=== PATIENT | female | born 1970 | race Caucasian/White ===

== ENCOUNTER → 2016-09-11 | Outpatient (CLI) | payer OTHER ==
[~2016-09-11] MED LIST: AZOR 10-40 MG1 EACH PO; COLACE 100MG C100 MG PO; CYMBALTA60 MG PO; DESYREL 50 MG T50 MG PO; DOXYCYCLINE HY100 M2 PO; FLEXERIL 10 MG10 MG PO; HYDROCHLOROTHIA25 MG PO; K-DUR TAB 20 M20 MEQ PO; KLONOPIN TAB 00.5 MG PO; LOPRESSOR 50 MG50 MG PO; NORCO 10-325 T1 EACH PO; PROTONIX40 MG PO; VISTARIL25 MG PO; WELLBUTRIN SR150 M1 PO; ZOCOR20 MG PO
[2016-09-11 16:50] LABS: HEMOGLOBIN 12.5 gm/dl (12.3-15.3); RED BLOOD COUNT 4.69 M/UL (4.00-5.10)
[2016-09-11 17:08] LABS: BUN/CREATININE RATIO 18 (0-10)
== END ==
LOC: LAB 16:22
PROVIDERS: Nurse Practitioner
DX: M06.9 Rheumatoid arthritis, unspecified (principal); M25.50 Pain in unspecified joint; R53.83 Other fatigue; E55.9 Vitamin D deficiency, unspecified; E53.8 Deficiency of other specified B group vitamins
CPT/HCPCS: 36415; 80053; 80061; 82607; 84436; 84443; 84480; 85025; 86039; 86140; 86431

== ENCOUNTER → 2017-01-07 | Outpatient (CLI) | payer OTHER ==
[2017-01-07 15:51] LABS: HEMOGLOBIN 12.2 gm/dl (12.3-15.3); RED BLOOD COUNT 4.65 M/UL (4.00-5.10); WHITE BLOOD COUNT 6.8 K/UL (4.5-11.0)
[2017-01-07 16:25] LABS: BUN/CREATININE RATIO 29 (0-10)
== END ==
LOC: LAB 14:27
PROVIDERS: Nurse Practitioner
DX: D64.9 Anemia, unspecified (principal); K85.90 Acute pancreatitis without necrosis or infection, unspecified; K76.0 Fatty (change of) liver, not elsewhere classified
CPT/HCPCS: 36415; 80053; 82150; 83690; 85027

== ENCOUNTER 2020-06-02 21:09 | Emergency (ER) | payer MEDICARE, OTHER ==
[~2020-06-02 21:09] MED LIST changes: +CARAFATE1 GM PO; +CREON DR 36,001 EACH PO; +EX-LAX15 MG PO; +FLONASE 0.05% N16 GM; +HYDROCHLOROTHIA50 MG PO; +HYGROTON TAB 2525 MG PO; +LASIX20 MG PO; +NORCO 5-325 TA1 EACH PO; +NORVASC10 MG PO; +PREDNISONE10 MG PO; +SYSTANE 0.3-0.415 ML EYEBOTH; +ZOFRAN ODT 4 MG4 MG SL; +ZOFRAN4 MG PO
[2020-06-02 21:50] LABS: HEMOGLOBIN 13.3 gm/dl (12.3-15.3); RED BLOOD COUNT 5.05 M/UL (4.00-5.10); WHITE BLOOD COUNT 8.5 K/UL (4.5-11.0)
[2020-06-02 22:12] LABS: BUN/CREATININE RATIO 9 (0-10)
[2020-06-03] MEDS ORDERED: DOXYCYCLINE MO100 MG PO (00:10)
[2020-06-03] MEDS ORDERED: VENTOLIN HFA 66.7 GM INH (00:10)
[2020-06-04] MEDS ORDERED: IBUPROFEN800 MG PO (21:55)
[2020-06-04] MEDS ORDERED: FLOVENT 110.088 GM/I INH (21:55)
[2020-06-04] MEDS ORDERED: ZOFRAN 4 MG TAB4 MG PO (21:55)
[2020-06-04] MEDS ORDERED: PROAIR DIGIHAL90 MCG INH (21:55)
[2020-06-04] MEDS ORDERED: NASONEX17 GM (21:55)
== END 2020-06-03 00:42 | disposition home or self-care (01) ==
LOC: ER1 21:09
PROVIDERS: Physician Assistant
DX: U07.1 COVID-19 (principal); J12.82 Pneumonia due to coronavirus disease 2019; I10 Essential (primary) hypertension; E11.9 Type 2 diabetes mellitus without complications; Z88.0 Allergy status to penicillin; Z88.1 Allergy status to other antibiotic agents
CPT/HCPCS: 0240U; 36415; 71045; 80053; 85025; 96374; 99283; J1100

== ENCOUNTER 2020-06-04 19:06 | Emergency (ER) | payer MEDICARE, OTHER ==
[~2020-06-04 19:06] MED LIST changes: +DOXYCYCLINE MO100 MG PO; +VENTOLIN HFA 66.7 GM INH
[2020-06-04 19:58] LABS: HEMOGLOBIN 12.3 gm/dl (12.3-15.3); RED BLOOD COUNT 4.75 M/UL (4.00-5.10); WHITE BLOOD COUNT 8.7 K/UL (4.5-11.0)
[2020-06-04 20:07] LABS: BUN/CREATININE RATIO 10 (0-10)
[2020-06-04] MEDS ORDERED: PROAIR DIGIHAL90 MCG INH (21:55)
[2020-06-04] MEDS ORDERED: FLOVENT 110.088 GM/I INH (21:55)
[2020-06-04] MEDS ORDERED: IBUPROFEN800 MG PO (21:55)
[2020-06-04] MEDS ORDERED: ZOFRAN 4 MG TAB4 MG PO (21:55)
[2020-06-04] MEDS ORDERED: NASONEX17 GM (21:55)
== END 2020-06-04 22:07 | disposition home or self-care (01) ==
LOC: ER1 19:06
PROVIDERS: Emergency Medicine
DX: U07.1 COVID-19 (principal); E11.9 Type 2 diabetes mellitus without complications; I10 Essential (primary) hypertension
CPT/HCPCS: 36415; 71045; 80053; 81001; 84484; 85025; 93005; 99285

== ENCOUNTER 2020-06-11 15:52 | Inpatient (IN) | payer MEDICARE, OTHER ==
[~2020-06-11] VITALS: Ht 165.1 cm; Wt 108.9 kg
[~2020-06-11 15:52] MED LIST changes: +FLOVENT 110.088 GM/I INH; +IBUPROFEN800 MG PO; +NASONEX17 GM; +PROAIR DIGIHAL90 MCG INH; +ZOFRAN 4 MG TAB4 MG PO
[2020-06-11 18:32] LABS: RED BLOOD COUNT 5.03 M/UL (4.00-5.10); WHITE BLOOD COUNT 11.9 K/UL (4.5-11.0)
[2020-06-11 18:55] LABS: BUN/CREATININE RATIO 20 (0-10)
[2020-06-11] MEDS ORDERED: GLUCOPHAGE500 MG PO (22:20)
[2020-06-11] MEDS ORDERED: ALDACTONE 25MG25 MG PO (22:23)
[2020-06-12 04:50] LABS: HEMOGLOBIN 11.9 gm/dl (12.3-15.3); RED BLOOD COUNT 4.58 M/UL (4.00-5.10); WHITE BLOOD COUNT 12.2 K/UL (4.5-11.0)
[2020-06-12 05:11] LABS: BUN/CREATININE RATIO 21 (0-10)
[2020-06-13 03:46] LABS: BUN/CREATININE RATIO 25 (0-10)
--- NOTE | 2020-06-13 11:07 | NUR ---
INFORMED DR. MARRERO PATIENT INCREASE HEART RATE 140'S EPISODE FOR FEW SECONDS AND BACK TO 89. SHE ACKNOWLEDGED
[2020-06-14 04:23] LABS: HEMOGLOBIN 10.4 gm/dl (12.3-15.3)
[2020-06-14 04:26] LABS: RED BLOOD COUNT 4.08 M/UL (4.00-5.10)
[2020-06-14 04:57] LABS: BUN/CREATININE RATIO 34 (0-10)
[2020-06-15 02:53] LABS: BUN/CREATININE RATIO 33 (0-10)
[2020-06-16 06:59] LABS: BUN/CREATININE RATIO 29 (0-10)
[2020-06-16] MEDS ORDERED: DECADRON6 MG PO (12:34)
[2020-06-17 00:10] LABS: ADENOVIRUS F 40/41 Not Detected (Not Detected); ASTROVIRUS Not Detected (Not Detected); C DIFFICILE TOXIN A/B Not Detected (Not Detected); CAMPYLOBACTER Not Detected (Not Detected); CRYPTOSPORIDIUM Not Detected (Not Detected); CYCLOSPORA CAYETANENSIS Not Detected (Not Detected); ENTAMOEBA HISTOLYTICA Not Detected (Not Detected); ENTEROAGGREGATIVE E COLI Not Detected (Not Detected); ENTEROPATHOGENIC E COLI Not Detected (Not Detected); ENTEROTOXIGENIC E COLI Not Detected (Not Detected); GIARDIA LAMBLIA Not Detected (Not Detected); NOROVIRUS GI/GII Not Detected (Not Detected); PLESIOMONAS SHIGELLOIDES Not Detected (Not Detected); ROTAVIRUS A Not Detected (Not Detected); SALMONELLA Not Detected (Not Detected); SAPOVIRUS Not Detected (Not Detected); SHIGA-TOXIN-PRODUCING E COLI Not Detected (Not Detected); SHIGELLA/ENTEROINVASIVE E COLI Not Detected (Not Detected); VIBRIO Not Detected (Not Detected); VIBRIO CHOLERAE Not Detected (Not Detected); YERSINIA ENTEROCOLITICA Not Detected (Not Detected)
== END 2020-06-16 19:02 | disposition home or self-care (01) | DRG 177 ==
LOC: ER1 15:52 → CDU 21:12 → MED SURG 4 06-12 20:10
PROVIDERS: Emergency Medicine; Internal Medicine; ADMIT Internal Medicine
PROC: 8E0ZXY6 Isolation (ICD-10-PCS; principal; 2020-06-11)
PROC: XW13325 Transfusion of Convalescent Plasma (Nonautologous) into Peripheral Vein, Percutaneous Approach, New Technology Group 5 (ICD-10-PCS; 2020-06-11)
PROC: XW033E5 Introduction of Remdesivir Anti-infective into Peripheral Vein, Percutaneous Approach, New Technology Group 5 (ICD-10-PCS; 2020-06-12)
DX: U07.1 COVID-19 (principal); K85.80 Other acute pancreatitis without necrosis or infection; J12.82 Pneumonia due to coronavirus disease 2019; M06.9 Rheumatoid arthritis, unspecified; E66.01 Morbid (severe) obesity due to excess calories; I10 Essential (primary) hypertension; F32.9 Major depressive disorder, single episode, unspecified; G89.4 Chronic pain syndrome; K76.0 Fatty (change of) liver, not elsewhere classified; Z79.899 Other long term (current) drug therapy; E11.9 Type 2 diabetes mellitus without complications; Z90.49 Acquired absence of other specified parts of digestive tract; Z68.39 Body mass index [BMI] 39.0-39.9, adult
CPT/HCPCS: 36415; 36430; 36600; 71045; 80048; 80053; 80061; 82550; 82553; 82803; 83690; 83874; 84484; 85025; 85027; 85610; 86900; 86901; 86927; 87507; 93005; 94640; 94664; 94760; 96361; 96374; 96375; 99285; G0378; J1100; J2270; J2405; J7030; J7050; Q0177; Q9967; U0002

== ENCOUNTER → 2020-08-20 | Outpatient (CLI) | payer MEDICARE, OTHER ==
[~2020-08-20] MED LIST changes: +ALDACTONE 25MG25 MG PO; +DECADRON6 MG PO; +GLUCOPHAGE500 MG PO
[2020-08-20 17:00] LABS: HEMOGLOBIN 12.9 gm/dl (12.3-15.3); RED BLOOD COUNT 5.12 M/UL (4.00-5.10); WHITE BLOOD COUNT 8.6 K/UL (4.5-11.0)
[2020-08-20 17:32] LABS: BUN/CREATININE RATIO 16 (0-10)
[2020-08-22 07:11] LABS: THYROXINE (T4) 8.1 ug/dL (4.5-12.0); VITAMIN D, 25-HYDROXY 24.1 ng/mL (30.0-100.0)
[2020-08-22 10:14] LABS: CREATININE, URINE 134.3 mg/dL (Not Estab.)
== END ==
LOC: LAB 14:16
PROVIDERS: Nurse Practitioner
DX: E11.9 Type 2 diabetes mellitus without complications (principal); R53.83 Other fatigue; E78.5 Hyperlipidemia, unspecified; I10 Essential (primary) hypertension; E55.9 Vitamin D deficiency, unspecified; R19.7 Diarrhea, unspecified
CPT/HCPCS: 36415; 80053; 80061; 82043; 82570; 83036; 84436; 84443; 84480; 85025

== ENCOUNTER → 2020-12-05 | Outpatient (CLI) | payer MEDICARE ==
[2020-12-05 17:07] LABS: HEMOGLOBIN 12.8 gm/dl (12.3-15.3); RED BLOOD COUNT 4.88 M/UL (4.00-5.10); WHITE BLOOD COUNT 9.1 K/UL (4.5-11.0)
[2020-12-07 08:13] LABS: THYROXINE (T4) 8.5 ug/dL (4.5-12.0)
== END ==
LOC: LAB 14:42
PROVIDERS: Nurse Practitioner
DX: F41.9 Anxiety disorder, unspecified (principal); I10 Essential (primary) hypertension; E78.5 Hyperlipidemia, unspecified; E11.9 Type 2 diabetes mellitus without complications; F32.9 Major depressive disorder, single episode, unspecified; E55.9 Vitamin D deficiency, unspecified; R53.83 Other fatigue
CPT/HCPCS: 36415; 80053; 80061; 81001; 83036; 84436; 84443; 84480; 85025

== ENCOUNTER → 2020-12-12 | Outpatient (CLI) | payer MEDICARE | LOC: KOH-I 12-10 08:30 | DX: M54.6 Pain in thoracic spine (principal); M25.562 Pain in left knee; M76.52 Patellar tendinitis, left knee | CPT/HCPCS: 71046; 73721 ==

== ENCOUNTER 2021-12-01 17:22 | Inpatient (IN) | payer MEDICARE, MEDICAID ==
[~2021-12-01] VITALS: Ht 162.6 cm; Wt 108.0 kg
[~2021-12-01 17:22] MED LIST changes: -GLUCOPHAGE500 MG PO; +HYDROCODON-ACE1 EAC6 PO; +METFORMIN HCL1000 MG PO; +MOBIC15 MG PO; -NORCO 10-325 T1 EACH PO; +ROBAXIN 750 MG750 MG PO
[2021-12-01 22:01] LABS: HEMOGLOBIN 13.4 gm/dl (12.3-15.3); RED BLOOD COUNT 5.02 M/UL (4.00-5.10); WHITE BLOOD COUNT 10.9 K/UL (4.5-11.0)
[2021-12-01 22:29] LABS: BUN/CREATININE RATIO 16 (0-10)
[2021-12-02 07:04] LABS: HEMOGLOBIN 11.2 gm/dl (12.3-15.3); RED BLOOD COUNT 4.43 M/UL (4.00-5.10)
[2021-12-02 07:26] LABS: BUN/CREATININE RATIO 18 (0-10)
[2021-12-02] MEDS ORDERED: ATORVASTATIN CA10 MG PO (11:34)
[2021-12-02] MEDS ORDERED: MONTELUKAST SOD10 MG PO (11:35)
[2021-12-02] MEDS ORDERED: ONDANSETRON HCL4 MG PO (11:35)
[2021-12-02] MEDS ORDERED: IBU-200200 MG PO (11:36)
[2021-12-03 07:01] LABS: HEMOGLOBIN 11.2 gm/dl (12.3-15.3); RED BLOOD COUNT 4.23 M/UL (4.00-5.10)
[2021-12-03 07:39] LABS: BUN/CREATININE RATIO 12 (0-10)
[2021-12-04 06:30] LABS: HEMOGLOBIN 10.9 gm/dl (12.3-15.3); RED BLOOD COUNT 4.17 M/UL (4.00-5.10); WHITE BLOOD COUNT 7.5 K/UL (4.5-11.0)
[2021-12-04 06:53] LABS: BUN/CREATININE RATIO 7 (0-10)
[2021-12-05 07:01] LABS: BUN/CREATININE RATIO 5 (0-10)
== END 2021-12-07 12:10 | disposition home or self-care (01) | DRG 439 ==
LOC: ER1 17:22 → MED SURG 4 12-02 01:41 → CDU 12-02 01:41 → MED SURG 4 12-02 02:27
PROVIDERS: Family Medicine; Internal Medicine; ADMIT Internal Medicine
DX: K85.90 Acute pancreatitis without necrosis or infection, unspecified (principal); F11.20 Opioid dependence, uncomplicated; Z68.41 Body mass index [BMI] 40.0-44.9, adult; M06.9 Rheumatoid arthritis, unspecified; M79.7 Fibromyalgia; E66.01 Morbid (severe) obesity due to excess calories; I10 Essential (primary) hypertension; E83.42 Hypomagnesemia; F32.A Depression, unspecified; K76.0 Fatty (change of) liver, not elsewhere classified; M54.9 Dorsalgia, unspecified; G89.29 Other chronic pain; Z90.49 Acquired absence of other specified parts of digestive tract; Z90.710 Acquired absence of both cervix and uterus; Z98.890 Other specified postprocedural states; Z88.2 Allergy status to sulfonamides; Z88.8 Allergy status to other drugs, medicaments and biological substances; Z88.0 Allergy status to penicillin; Z88.5 Allergy status to narcotic agent; Z82.0 Family history of epilepsy and other diseases of the nervous system; Z87.891 Personal history of nicotine dependence; Z86.16 Personal history of COVID-19
CPT/HCPCS: 36415; 80048; 80053; 82550; 82553; 82962; 83690; 83735; 84484; 85025; 85027; 93005; 94664; 94760; 96372; 96374; 96375; 96376; 99285; G0378; J1650; J2270; J2405; J3475; Q0177; Q9967

== ENCOUNTER 2022-01-05 13:57 | Emergency (ER) | payer MEDICARE ==
[~2022-01-05 13:57] MED LIST changes: +ATORVASTATIN CA10 MG PO; +IBU-200200 MG PO; +MONTELUKAST SOD10 MG PO; +ONDANSETRON HCL4 MG PO
[2022-01-05 15:05] LABS: HEMOGLOBIN 13.3 gm/dl (12.3-15.3); RED BLOOD COUNT 5.01 M/UL (4.00-5.10); WHITE BLOOD COUNT 11.1 K/UL (4.5-11.0)
[2022-01-05 15:20] LABS: BUN/CREATININE RATIO 16 (0-10)
[2022-01-05] MEDS ORDERED: ZOFRAN ODT 4 MG4 MG SL (19:04)
== END 2022-01-05 19:57 | disposition home or self-care (01) ==
LOC: ER1 13:57
PROVIDERS: Family Medicine
DX: R10.30 Lower abdominal pain, unspecified (principal); R10.13 Epigastric pain; E11.9 Type 2 diabetes mellitus without complications; R10.817 Generalized abdominal tenderness
CPT/HCPCS: 80053; 81001; 83690; 83735; 85025; 96374; 96375; 99284; J2270; J2405; Q9967